=== PATIENT | male | born 1995 | race African-American/Black ===

== ENCOUNTER 2019-06-23 22:20 | Emergency (ER) | payer OTHER, MEDICAID ==
[~2019-06-23] VITALS: Ht 177.8 cm; Wt 116.0 kg
[2019-06-24] MEDS ORDERED: KETOROLAC 30MG/ML VIAL IV ONE (01:00)
[2019-06-24 02:12] LABS: HEMOGLOBIN. 15.1 g/dL (14.0-18.0); RED BLOOD CELL COUNT 5.15 mill/uL (4.7-6.1)
[2019-06-24 02:17] LABS: CLARITY URINE CLOUDY (CLEAR); COLOR URINE YELLOW (YELLOW); KETONES URINE NEGATIVE (NEGATIVE); LEUKOCYTE ESTERASE URINE NEGATIVE (NEGATIVE); NITRITE URINE NEGATIVE (NEGATIVE); OCCULT BLOOD URINE NEGATIVE (NEGATIVE); PH URINE >=9.0 (4.5-8.0); PROTEIN URINE TRACE (NEGATIVE); SPECIFIC GRAVITY URINE 1.027 (1.005-1.030)
[2019-06-24 02:19] LABS: CHLORIDE 104 mEq/L (98-107)
[2019-06-24 02:21] LABS: PARTIAL THROMBOPLASTIN TIME 29.2 sec (23.4-31.0)
[2019-06-24 02:23] LABS: BASOPHILS % 0.4 % (0.0-2.0); HEMATOCRIT. 43.9 % (42.0-52.0); LYMPHOCYTES % 12.6 % (20.0-50.0); MEAN CORPUSCULAR HEMOGLOBIN 29.4 pg (28.0-32.0); MEAN CORPUSCULAR VOLUME 85.3 fL (80.0-94.0); MEAN PLATELET VOLUME 9.3 fl (7.4-10.4); MONOCYTES % 4.7 % (2.0-8.0); NEUTROPHILS % 82.3 % (40.0-76.0); PLATELET 255 x1000/uL (130-400)
[2019-06-24 02:25] VITALS: BP 190/102
== END 2019-06-24 02:34 | disposition home or self-care (01) ==
LOC: ER 22:20
DX: N44.00 Torsion of testis, unspecified (principal); N45.1 Epididymitis
CPT/HCPCS: 36415; 76870; 80048; 81003; 85025; 85610; 85730; 93976; 99285; J1885